=== PATIENT | male | born 1995 | race Two or more races ===

== ENCOUNTER 2020-05-23 18:37 | Inpatient (IN) | payer OTHER ==
[~2020-05-23] VITALS: Ht 167.6 cm; Wt 81.5 kg
[2020-05-23] MEDS ORDERED: ACETAMINOPHEN 325 MG TABLET PO PRN (19:15)
[2020-05-23] MEDS ORDERED: CLON-592 PO (19:23)
[2020-05-23 19:31] LABS: BASOPHILS % (AUTO) 1.1 % (0.0-2.0); EOSINOPHILS % (AUTO) 5.9 % (1.0-6.0); HEMATOCRIT 43.6 % (41-53); HEMOGLOBIN 15.2 g/dL (13.5-17.5); LYMPHOCYTES # (AUTO) 2.1 K/uL (1.0-4.8); LYMPHOCYTES % (AUTO) 39.5 % (22.0-44.0); MEAN CORPUSCULAR HEMOGLOBIN 31.3 pg (26.0-34.0); MEAN CORPUSCULAR HGB CONC 34.9 G/dL (31.0-37.0); MEAN CORPUSCULAR VOLUME 90 fL (80-100); MONOCYTES # (AUTO) 0.5 K/uL (0.1-1.0); MONOCYTES % (AUTO) 8.4 % (2.0-9.0); NEUTROPHILS # (AUTO) 2.4 K/uL (1.8-7.7); NEUTROPHILS % (AUTO) 45.1 % (40.0-70.0); PLATELET COUNT (AUTO) 242 K/uL (150-450); RED BLOOD CELL COUNT(AUTO) 4.86 MIL/uL (4.50-5.90); RED CELL DISTRIBUTION WIDTH 12.7 % (11.5-14.5)
[2020-05-23 19:41] LABS: ANION GAP 7 mmol/L (8-16); CALCIUM, TOTAL 9.3 mg/dL (8.8-10.5); CARBON DIOXIDE 31 mmol/L (22-29); CHLORIDE 105 mmol/L (98-107); CREATININE 1.02 mg/dL (0.60-1.30); GLOMERULAR FILTR. RATE CALC > 60 mL/min (>60); GLUCOSE,RANDOM 89 mg/dL (70-110); POTASSIUM 3.8 mmol/L (3.5-5.1); SODIUM SERUM 143 mmol/L (136-145); UREA NITROGEN, BLOOD 12 mg/dL (7-18)
[2020-05-23 19:48] LABS: ALANINE AMINOTRANSFERASE 21 U/L (12-78); ALBUMIN 4.1 g/dL (3.4-5.0); ALKALINE PHOSPHATASE 57 U/L (46-116); ASPARTATE AMINOTRANSFERASE 14 U/L (15-37); BILIRUBIN,TOTAL 0.7 mg/dL (0.1-1.0); LIPASE 80 U/L (73-393)
[2020-05-23 19:51] LABS: ACETAMINOPHEN < 2 mcg/mL (10-30)
[2020-05-23 19:52] LABS: SALICYLATE < 2.8 mg/dL (2.8-20.0)
[2020-05-23] MEDS ORDERED: LORazepam 2 MG/ML VIAL IVP PRN (20:15)
[2020-05-23] MEDS ORDERED: ChlordiazePOXIDE HCL 25 MG CAPSULE PO PRN (20:15)
[2020-05-23] MEDS ORDERED: ONDANSETRON HCL 4 MG/2 ML VIAL IVP PRN (20:15)
[2020-05-23 20:24] LABS: COVID AG,FIA SOURCE NASOPHARYNGEAL
[2020-05-23 22:07] VITALS: BP 121/73
[2020-05-23 23:00] VITALS: BP 125/67
[2020-05-24] VITALS (7 sets, daily range): BP systolic 105–123; BP diastolic 68–85
[2020-05-24] MEDS: HEPARIN SODIUM,PORCINE 5,000 UNITS/ML VIAL SQ SCH ×4 (00:03→23:44)
[2020-05-24] MEDS ORDERED: INFLUENZA VIRUS VACCINE QVS 2020-21 (6MO+)/PF 60 MCG/0.5 ML SYRINGE IM ONE (02:45)
[2020-05-24] MEDS ORDERED: ChlordiazePOXIDE HCL 25 MG CAPSULE PO PRN (07:00)
[2020-05-24] MEDS ORDERED: ChlordiazePOXIDE HCL 25 MG CAPSULE PO SCH (09:00)
[2020-05-24] MEDS ORDERED: ChlordiazePOXIDE HCL 10 MG CAPSULE PO PRN (10:45)
[2020-05-25 07:54] VITALS: BP 120/68
[2020-05-25] MEDS: HEPARIN SODIUM,PORCINE 5,000 UNITS/ML VIAL SQ SCH ×3 (09:15→23:19)
[2020-05-25 14:49] LABS: APPEARANCE,URINE CLEAR (CLEAR); BILIRUBIN,URINE NEGATIVE (NEGATIVE); GLUCOSE, URINE (UA) NEGATIVE (NEGATIVE); KETONES,URINE NEGATIVE (NEGATIVE); LEUKOCYTE ESTERASE ,URINE NEGATIVE (NEGATIVE); NITRATE,URINE NEGATIVE (NEGATIVE); OCCULT BLOOD,URINE NEGATIVE (NEGATIVE); PH,URINE 6.5 (5.0-8.0); PROTEIN,URINE NEGATIVE (NEGATIVE)
[2020-05-25 19:34] VITALS: BP 118/70
[2020-05-25] MEDS: MELATONIN 3 MG TABLET PO PRN (20:16)
[2020-05-26] MEDS ORDERED: ChlordiazePOXIDE HCL 10 MG CAPSULE PO PRN (07:00)
[2020-05-26 07:33] VITALS: BP 132/84
[2020-05-26] MEDS: HEPARIN SODIUM,PORCINE 5,000 UNITS/ML VIAL SQ SCH (08:49)
[2020-05-26] MEDS ORDERED: ChlordiazePOXIDE HCL 10 MG CAPSULE PO SCH (09:00)
[2020-05-26 19:52] VITALS: BP 122/67
[2020-05-26] MEDS: MELATONIN 3 MG TABLET PO PRN (20:49)
[2020-05-27] MEDS ORDERED: RINGERS SOLUTION,LACTATED 1,000 ML IV ONE (05:38)
[2020-05-27] MEDS ORDERED: BUPIVACAINE HCL/PF 0.25% 30 ML VIAL ONE (05:59)
[2020-05-27] MEDS ORDERED: VANCOMYCIN HCL 1 GM/VIAL ONE (05:59)
[2020-05-27] MEDS ORDERED: MUPIROCIN CALCIUM 2% 22 GM OINTMENT ONE (05:59)
[2020-05-27] MEDS ORDERED: BUPIVACAINE LIPOSOME/PF 1.3%-13.3MG/ML SUSPENSION 10 ML VIAL INJ ONE (06:00)
[2020-05-27] MEDS ORDERED: MICROFIBRILLAR COLLAGEN 1 GM PACKAGE TP ONE (06:00)
[2020-05-27] MEDS ORDERED: SODIUM CHLORIDE 0.9% 1,000 ML ONE (06:00)
[2020-05-27] MEDS ORDERED: RINGERS SOLUTION,LACTATED 1,000 ML IV SCH (06:15)
[2020-05-27 06:23] LABS: BASOPHILS % (AUTO) 0.6 % (0.0-2.0); EOSINOPHILS % (AUTO) 5.6 % (1.0-6.0); HEMATOCRIT 46.7 % (41-53); HEMOGLOBIN 16.3 g/dL (13.5-17.5); LYMPHOCYTES # (AUTO) 2.3 K/uL (1.0-4.8); LYMPHOCYTES % (AUTO) 39.4 % (22.0-44.0); MEAN CORPUSCULAR HEMOGLOBIN 31.3 pg (26.0-34.0); MEAN CORPUSCULAR VOLUME 90 fL (80-100); MONOCYTES # (AUTO) 0.4 K/uL (0.1-1.0); MONOCYTES % (AUTO) 7.6 % (2.0-9.0); NEUTROPHILS # (AUTO) 2.7 K/uL (1.8-7.7); NEUTROPHILS % (AUTO) 46.8 % (40.0-70.0); PLATELET COUNT (AUTO) 247 K/uL (150-450); RED BLOOD CELL COUNT(AUTO) 5.21 MIL/uL (4.50-5.90); RED CELL DISTRIBUTION WIDTH 12.6 % (11.5-14.5)
[2020-05-27 06:31] LABS: ALANINE AMINOTRANSFERASE 28 U/L (12-78); ALBUMIN 3.7 g/dL (3.4-5.0); ALKALINE PHOSPHATASE 48 U/L (46-116); ANION GAP 5 mmol/L (8-16); ASPARTATE AMINOTRANSFERASE 22 U/L (15-37); BILIRUBIN,TOTAL 0.6 mg/dL (0.1-1.0); CALCIUM, TOTAL 9.5 mg/dL (8.8-10.5); CARBON DIOXIDE 31 mmol/L (22-29); CHLORIDE 105 mmol/L (98-107); CREATININE 0.87 mg/dL (0.60-1.30); GLOMERULAR FILTR. RATE CALC > 60 mL/min (>60); GLUCOSE,RANDOM 95 mg/dL (70-110); POTASSIUM 3.8 mmol/L (3.5-5.1); SODIUM SERUM 141 mmol/L (136-145); TOTAL PROTEIN, SERUM 6.9 g/dL (6.4-8.2); UREA NITROGEN, BLOOD 16 mg/dL (7-18)
[2020-05-27] MEDS ORDERED: ChlordiazePOXIDE HCL 10 MG CAPSULE PO PRN (07:00)
[2020-05-27] MEDS ORDERED: BUPIVACAINE LIPOSOME/PF 1.3%-13.3MG/ML SUSPENSION 20 ML VIAL INJ ONE ×2 (07:45→08:00)
[2020-05-27] MEDS ORDERED: ONDANSETRON HCL 4 MG/2 ML VIAL IVP PRN (08:00)
[2020-05-27] MEDS ORDERED: HYDROmorphone 2 MG/ML SYRINGE IVP PRN ×3 (08:00)
[2020-05-27] MEDS ORDERED: ACETAMINOPHEN 1000 MG/ISO-OSM 100 ML IV ONE (08:00)
[2020-05-27] MEDS ORDERED: SUGAMMADEX SODIUM 200 MG/2 ML VIAL IVP ONE (08:32)
[2020-05-27] MEDS ORDERED: HYDROmorphone 2 MG/ML SYRINGE ONE (09:04)
[2020-05-27 09:38] VITALS: BP 156/96
[2020-05-27] MEDS ORDERED: HYDROCODONE/ACETAMINOPHEN 5-325 MG TABLET PO PRN (10:45)
[2020-05-27] MEDS ORDERED: LORazepam 2 MG/ML VIAL IVP ONE (10:45)
[2020-05-27] MEDS ORDERED: PROPOFOL 1% 20 ML VIAL IVP ONE (12:00)
[2020-05-27] MEDS ORDERED: ROCURONIUM BROMIDE 10 MG/ML 5 ML VIAL IVP ONE (12:00)
[2020-05-27] MEDS ORDERED: ESMOLOL HCL 10 MG/ML 10 ML VIAL IVP ONE (12:00)
[2020-05-27] MEDS ORDERED: SUCCINYLCHOLINE CHLORIDE 20 MG/ML 10 ML VIAL IVP ONE (12:00)
[2020-05-27] MEDS ORDERED: LIDOCAINE/PF 2% 5 ML VIAL INJ ONE (12:00)
[2020-05-27] MEDS ORDERED: FentaNYL CITRATE-PF 100 MCG/2 ML VIAL IVP ONE (12:00)
[2020-05-27] MEDS ORDERED: MIDAZOLAM HCL 2 MG/2 ML VIAL IVP ONE (12:00)
[2020-05-27] MEDS ORDERED: SODIUM CHLORIDE 0.9% 250 ML IV ONE (14:57)
[2020-05-27] MEDS: HYDROCODONE/ACETAMINOPHEN 5-325 MG TABLET PO PRN (15:38)
[2020-05-27] MEDS: CeFAZolin 2 GM/DEXTROSE 50 ML IV SCH ×2 (16:30→22:00)
[2020-05-27 19:50] VITALS: BP 127/72
[2020-05-28] MEDS: HYDROCODONE/ACETAMINOPHEN 5-325 MG TABLET PO PRN ×2 (02:04→18:44)
[2020-05-28 08:09] VITALS: BP 127/85
[2020-05-28 09:16] VITALS: BP 127/85
[2020-05-28 15:55] VITALS: BP 127/78
[2020-05-28 19:52] VITALS: BP 109/61
[2020-05-29 04:44] VITALS: BP 126/78
[2020-05-29 08:50] VITALS: BP 136/83
[2020-05-29 09:29] VITALS: BP 136/83
[2020-05-29] MEDS: ACETAMINOPHEN 325 MG TABLET PO PRN ×2 (15:24→23:19)
[2020-05-29 19:33] VITALS: BP 123/63
[2020-05-29] MEDS: MELATONIN 3 MG TABLET PO PRN (23:19)
[2020-05-30 04:17] VITALS: BP 133/85
[2020-05-30 08:24] VITALS: BP 116/76
[2020-05-30] MEDS ORDERED: ACET-2865 PO (12:58)
[2020-05-30] MEDS ORDERED: ACET-2080 PO (13:00)
[2020-05-30] MEDS: ACETAMINOPHEN 325 MG TABLET PO PRN (14:54)
== END 2020-05-30 16:41 | DRG 511 ==
LOC: EMS 18:37 → 6N 19:07 → UNDOADMIN 19:58 → 6S 05-26 08:44
PROVIDERS: ADMIT Internal Medicine; ATTEND Internal Medicine
PROC: 0PSH0ZZ Reposition Right Radius, Open Approach (ICD-10-PCS; principal; 2020-05-28)
PROC: 01N50ZZ Release Median Nerve, Open Approach (ICD-10-PCS; 2020-05-28)
PROC: 0HBDXZZ Excision of Right Lower Arm Skin, External Approach (ICD-10-PCS; 2020-05-28)
DX: S52.501A Unspecified fracture of the lower end of right radius, initial encounter for closed fracture (principal); F13.239 Sedative, hypnotic or anxiolytic dependence with withdrawal, unspecified; F19.10 Other psychoactive substance abuse, uncomplicated; F17.210 Nicotine dependence, cigarettes, uncomplicated; F10.10 Alcohol abuse, uncomplicated; F14.10 Cocaine abuse, uncomplicated; G56.00 Carpal tunnel syndrome, unspecified upper limb; S60.211A Contusion of right wrist, initial encounter; X58.XXXA Exposure to other specified factors, initial encounter; Y93.89 Activity, other specified; Y92.89 Other specified places as the place of occurrence of the external cause; Y99.8 Other external cause status; Z20.828 Contact with and (suspected) exposure to other viral communicable diseases
CPT/HCPCS: 83735; 85651; 87426; 97110; 97162; 97165; 97535; C9290; G0480; G0481; J0330; J0690; J1170; J1644; J2060; J2250; J2405; J2704; J3010; J3370; J3490; J7030; J7050; J7120